=== PATIENT | female | born 1940 | race Two or more races ===

== ENCOUNTER 2022-06-23 12:59 | Emergency (ER) | payer OTHER ==
[~2022-06-23] VITALS: Ht 152.4 cm; Wt 59.0 kg
[2022-06-23] MEDS ORDERED: CLONIDINE1 EACH TD (14:17)
[2022-06-23] MEDS ORDERED: PANTOPRAZOLE SO20 MG PO (14:18)
[2022-06-23] MEDS ORDERED: TRAMADOL HCL50 MG PO (14:18)
[2022-06-23] MEDS ORDERED: LATANOPROST2.5 ML OP (14:18)
[2022-06-23] MEDS ORDERED: MAG-OXIDE400 MG PO (14:20)
[2022-06-23] MEDS ORDERED: GABAPENTIN300 M2 PO (14:20)
[2022-06-23] MEDS ORDERED: FAMOTIDINE20 MG PO (14:20)
[2022-06-23] MEDS ORDERED: APRESOLINE 10MG10 MG PO (14:21)
[2022-06-23] MEDS ORDERED: ATORVASTATIN CA20 MG PO (14:22)
[2022-06-23] MEDS ORDERED: ZANAFLEX2 MG PO (14:23)
[2022-06-23] MEDS ORDERED: AMLODIPINE BESYL5 MG PO (14:24)
[2022-06-23] MEDS ORDERED: RESTASIS1 EACH OP (14:24)
== END 2022-06-23 17:58 | disposition home or self-care (01) ==
LOC: ER 12:59
DX: M79.18 Myalgia, other site (principal); I10 Essential (primary) hypertension; Z88.0 Allergy status to penicillin; Z88.2 Allergy status to sulfonamides; Z88.8 Allergy status to other drugs, medicaments and biological substances; Z20.822 Contact with and (suspected) exposure to COVID-19